=== PATIENT | male | born 1960 | race Asian ===

== ENCOUNTER 2016-12-25 22:44 | Emergency (ER) | payer BC ==
[~2016-12-25] VITALS: Ht 177.8 cm; Wt 72.6 kg
[2016-12-25 22:51] VITALS: BP 136/78
--- NOTE | 2016-12-25 23:43 | NUR ---
PT AMBULATED TO BED 1 AT THIS TIME.
--- NOTE | 2016-12-26 00:07 | NUR ---
PT BACK FROM XRAY, AND TAKEN TO BED 7 AT THIS TIME.
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
[2016-12-26 00:53] VITALS: BP 136/78
--- NOTE | 2016-12-26 00:53 | NUR ---
Patient discharged with v/s stable. Written and verbal after care instructions given and explained. Patient alert, oriented and verbalized understanding of instructions. Ambulatory with steady gait. All questions addressed prior to discharge. ID band removed. Patient advised to follow up with PMD. Rx of flexeril and ibuprofen given. Patient educated on indication of medication including possible reaction and side effects. Opportunity to ask questions provided and answered.
== END 2016-12-26 00:53 | disposition home or self-care (01) ==
LOC: MED 22:44
DX: S16.1XXA Strain of muscle, fascia and tendon at neck level, initial encounter (principal); M54.6 Pain in thoracic spine; V89.2XXA Person injured in unspecified motor-vehicle accident, traffic, initial encounter; Y93.89 Activity, other specified; Y92.89 Other specified places as the place of occurrence of the external cause; Y99.8 Other external cause status